=== PATIENT | female | born 1990 | race Caucasian/White ===

== ENCOUNTER 2022-06-17 17:04 | Inpatient (IN) | payer BC, OTHER ==
[2022-06-17 18:07] VITALS: BMI 36.0
[2022-06-17] MEDS ORDERED: LOPERAMIDE HCL 2 MG CAPSULE PO PRN (20:15)
[2022-06-17] MEDS ORDERED: BENZONATATE 200 MG CAPSULE PO PRN (20:15)
[2022-06-17] MEDS ORDERED: DICYCLOMINE HCL 10 MG CAPSULE PO PRN (20:15)
[2022-06-17] MEDS ORDERED: IBUPROFEN 600 MG TABLET (FP) PO PRN (20:15)
[2022-06-17] MEDS ORDERED: P-EPHED 60MG/TRIPROLIDI 2.5MG TABLET PO PRN (20:15)
[2022-06-17] MEDS ORDERED: guaiFENesin 600 MG TABLET.ER (FP) PO PRN (20:15)
[2022-06-17] MEDS ORDERED: POLYETHYLENE GLYCOL (HEALTHYLAX) 3350 17 GM PACKET PO PRN (20:15)
[2022-06-17] MEDS ORDERED: BENZOCAINE/MENTHOL (CHLORASEPTIC ) LOZENGE MM PRN (20:15)
[2022-06-17] MEDS ORDERED: QUEtiapine FUMARATE 50 MG TABLET PO PRN (20:15)
[2022-06-17] MEDS ORDERED: IBUPROFEN 400 MG TABLET (FP) PO PRN (20:15)
[2022-06-17] MEDS ORDERED: NALOXONE HCL 0.4 MG/ML VIAL IM PRN (20:15)
[2022-06-17] MEDS ORDERED: NALOXONE HCL (KLOXXADO) 8 MG SPRAY NS PRN (20:15)
[2022-06-17] MEDS ORDERED: MAGNESIUM HYDROX 2400MG/30ML ORAL SUSPENSION 30 ML CUP PO PRN (20:15)
[2022-06-17] MEDS ORDERED: MAG HYDROX/AL HYDROX/SIMETH 30 ML UNIT-DOSE CUP PO PRN (20:15)
[2022-06-17] MEDS ORDERED: BISMUTH SUBSALICYLATE 524 MG/30 ML PO PRN (20:15)
[2022-06-17] MEDS ORDERED: chlordiazePOXIDE HCL 25 MG CAPSULE PO ONE (20:20)
[2022-06-17] MEDS ORDERED: chlordiazePOXIDE HCL 25 MG CAPSULE PO PRN (20:20)
[2022-06-17] MEDS: THIAMINE HCL 100 MG TABLET (FP) PO SCH (21:29)
[2022-06-17] MEDS: ONDANSETRON *ODT* 4 MG TABLET SL PRN (21:32)
[2022-06-17] MEDS: chlordiazePOXIDE HCL 25 MG CAPSULE PO SCH (22:22)
[2022-06-17] MEDS: MELATONIN 5 MG TABLETS PO SCH (22:22)
[2022-06-18] MEDS: chlordiazePOXIDE HCL 25 MG CAPSULE PO SCH ×4 (05:54→22:32)
[2022-06-18] MEDS: FLUoxetine HCL 20 MG CAPSULE PO SCH (10:26)
[2022-06-18] MEDS: PANTOPRAZOLE 20 MG TABLET PO SCH (10:26)
[2022-06-18] MEDS: PRENATAL VITAMINS W/ FOLIC ACID TABLET (FP) PO SCH (10:26)
[2022-06-18] MEDS: ONDANSETRON *ODT* 4 MG TABLET SL PRN ×3 (10:26→22:31)
[2022-06-18] MEDS: GABAPENTIN 300 MG CAPSULE PO SCH ×2 (10:26→22:31)
[2022-06-18] MEDS: hydrOXYzine PAMOATE 25 MG CAPSULE (FP) PO PRN (17:39)
[2022-06-18] MEDS: THIAMINE HCL 100 MG TABLET (FP) PO SCH (22:31)
[2022-06-18] MEDS: QUEtiapine FUMARATE 50 MG TABLET PO SCH (22:31)
[2022-06-18] MEDS: MELATONIN 5 MG TABLETS PO SCH (22:31)
[2022-06-19] MEDS: chlordiazePOXIDE HCL 25 MG CAPSULE PO SCH ×4 (05:56→22:29)
[2022-06-19] MEDS: PANTOPRAZOLE 20 MG TABLET PO SCH (10:20)
[2022-06-19] MEDS: GABAPENTIN 300 MG CAPSULE PO SCH ×2 (10:20→22:28)
[2022-06-19] MEDS: FLUoxetine HCL 20 MG CAPSULE PO SCH (10:21)
[2022-06-19] MEDS: PRENATAL VITAMINS W/ FOLIC ACID TABLET (FP) PO SCH (10:21)
[2022-06-19] MEDS: ONDANSETRON *ODT* 4 MG TABLET SL PRN ×2 (10:24→19:05)
[2022-06-19] MEDS: hydrOXYzine PAMOATE 25 MG CAPSULE (FP) PO PRN (17:06)
[2022-06-19] MEDS: ACETAMINOPHEN 325 MG TABLET (FP) PO PRN (17:06)
[2022-06-19] MEDS: THIAMINE HCL 100 MG TABLET (FP) PO SCH (22:28)
[2022-06-19] MEDS: MELATONIN 5 MG TABLETS PO SCH (22:28)
[2022-06-19] MEDS: QUEtiapine FUMARATE 50 MG TABLET PO SCH (22:28)
[2022-06-20] MEDS ORDERED: chlordiazePOXIDE HCL 10 MG CAPSULE PO PRN
[2022-06-20] MEDS: chlordiazePOXIDE HCL 10 MG CAPSULE PO SCH ×5 (05:41→22:07)
[2022-06-20] MEDS: ACETAMINOPHEN 325 MG TABLET (FP) PO PRN ×2 (05:42→15:57)
[2022-06-20] MEDS: PRENATAL VITAMINS W/ FOLIC ACID TABLET (FP) PO SCH (10:37)
[2022-06-20] MEDS: ONDANSETRON *ODT* 4 MG TABLET SL PRN ×3 (10:37→22:07)
[2022-06-20] MEDS: PANTOPRAZOLE 20 MG TABLET PO SCH (10:39)
[2022-06-20] MEDS: FLUoxetine HCL 20 MG CAPSULE PO SCH (10:40)
[2022-06-20] MEDS: GABAPENTIN 300 MG CAPSULE PO SCH ×2 (10:40→22:06)
[2022-06-20] MEDS: QUEtiapine FUMARATE 50 MG TABLET PO SCH (22:06)
[2022-06-20] MEDS: THIAMINE HCL 100 MG TABLET (FP) PO SCH (22:06)
[2022-06-20] MEDS: MELATONIN 5 MG TABLETS PO SCH (22:07)
[2022-06-21] MEDS: chlordiazePOXIDE HCL 10 MG CAPSULE PO SCH ×2 (05:18→17:47)
[2022-06-21] MEDS: FLUoxetine HCL 20 MG CAPSULE PO SCH (09:50)
[2022-06-21] MEDS: GABAPENTIN 300 MG CAPSULE PO SCH ×2 (09:50→22:03)
[2022-06-21] MEDS: PANTOPRAZOLE 20 MG TABLET PO SCH (09:50)
[2022-06-21] MEDS: PRENATAL VITAMINS W/ FOLIC ACID TABLET (FP) PO SCH (09:51)
[2022-06-21] MEDS: ACETAMINOPHEN 325 MG TABLET (FP) PO PRN ×2 (09:51→17:48)
[2022-06-21] MEDS: ONDANSETRON *ODT* 4 MG TABLET SL PRN ×2 (09:53→17:48)
[2022-06-21] MEDS: THIAMINE HCL 100 MG TABLET (FP) PO SCH (22:03)
[2022-06-21] MEDS: MELATONIN 5 MG TABLETS PO SCH (22:03)
[2022-06-21] MEDS: QUEtiapine FUMARATE 50 MG TABLET PO SCH (22:03)
[2022-06-22] MEDS ORDERED: chlordiazePOXIDE HCL 10 MG CAPSULE PO ONE (05:00)
[2022-06-22 09:40] VITALS: BP 114/65; PULSE 79; RESP 18; TEMP 97.5
[2022-06-22] MEDS ORDERED: TRIMETHOBENZAMIDE HCL 200MG/2ML INJ IM ONE (10:00)
[2022-06-22] MEDS: GABAPENTIN 300 MG CAPSULE PO SCH (11:47)
[2022-06-22] MEDS: PRENATAL VITAMINS W/ FOLIC ACID TABLET (FP) PO SCH (11:47)
[2022-06-22] MEDS: PANTOPRAZOLE 20 MG TABLET PO SCH (11:48)
[2022-06-22] MEDS: FLUoxetine HCL 20 MG CAPSULE PO SCH (11:48)
== END 2022-06-22 09:50 | disposition home or self-care (01) | DRG 897 ==
LOC: YASAS 17:04 → Y6N 20:50
PROVIDERS: ADMIT Allergy & Immunology; ATTEND Surgery
PROC: HZ2ZZZZ Detoxification Services for Substance Abuse Treatment (ICD-10-PCS; principal; 2022-06-17)
DX: F10.230 Alcohol dependence with withdrawal, uncomplicated (principal); F12.20 Cannabis dependence, uncomplicated; F17.210 Nicotine dependence, cigarettes, uncomplicated; F10.280 Alcohol dependence with alcohol-induced anxiety disorder; F10.24 Alcohol dependence with alcohol-induced mood disorder; F32.9 Major depressive disorder, single episode, unspecified; K21.9 Gastro-esophageal reflux disease without esophagitis; L30.9 Dermatitis, unspecified; R63.4 Abnormal weight loss; Z68.36 Body mass index [BMI] 36.0-36.9, adult
CPT/HCPCS: 81025; 87811; C9803-CS; Q0162; U0003; U0005